=== PATIENT | female | born 1970 | race Asian ===

== ENCOUNTER 2019-01-23 05:32 | Emergency (ER) | payer OTHER ==
[2019-01-23 06:53] VITALS: TEMP 97.9; BMI 29.2
--- NOTE | 2019-01-23 07:13 | PDOC ---
History of Present Illness - General Chief Complaint: Pain Stated Complaint: ABD PAIN Time Seen by Provider: 01/23/19 07:13 - History of Present Illness Initial Comments: 01/23/19 07:13 48 yo female with PMH HTN (not taking home med Norvasc 5 mg) presents with 20 days of heavy vaginal bleeding. She states that initially this bleeding was associated with some lower abdominal pain however the pain resolved after one day. Since then her only symptom had been the heavy vaginal bleeding. She endorses using >10 pads on any given day and the bleeding consists of what she describes as large clots. She states that the lower abdominal pain returned overnight which she describes as significant and radiates to her back b/l. She endorses some nausea which she attributes to the pain but denies any vomiting, constipation, diarrhea, or urinary symptoms. She does endorse becoming lightheaded during the encounter upon sitting up quickly. She denies having any symptoms like this previously and states that she has an appointment with a Manager Package next sunday however with the pain she was unable to wait until her appointment and felt the need to come in today for evaluation. Past History - Past Medical History Allergies/Adverse Reactions: Allergies Allergy/AdvReac Type Severity Reaction Status Date / Time No Known Allergies Allergy Verified 01/23/19 06:53 Home Medications: Ambulatory Orders Amlodipine Besylate [Norvasc -] 5 mg PO DAILY 01/23/19 COPD: No - Suicide/Smoking/Psychosocial Hx Smoking Status: No Smoking History: Never smoked Have you smoked in the past 12 months: No Number of Cigarettes Smoked Daily: 0 Information on smoking cessation initiated: No Hx Alcohol Use: No Drug/Substance Use Hx: No Review of Systems - Review of Systems Able to Perform ROS?: Yes Constitutional: No: Chills, Fever HEENTM: No: Blurred Vision Respiratory: No: Cough, Shortness of Breath Cardiac (ROS): No: Chest Pain, Edema ABD/GI: Yes: Nausea. No: Abdominal Distended, Blood Streaked Bowels, Constipated, Diarrhea, Rectal Bleeding, Vomiting : Yes: Pain, Other (vaginal bleeding). No: Burning, Dysuria, Discharge Musculoskeletal: Yes: Back Pain Integumentary: No: Bruising *Physical Exam - Vital Signs Last Vital Signs Temp Pulse Resp BP Pulse Ox 97.9 F 62 15 111/63 100 01/23/19 05:45 01/23/19 05:45 01/23/19 05:45 01/23/19 05:45 01/23/19 05:45 - Physical Exam Comments: 01/23/19 07:14 GEN: A&O, in no acute distress HEENT: moist mucus membranes NECK: supple, no lymphadenopathy HEART: RRR, no murmurs noted LUNGS: CTA b/l ABDOMEN: Soft, tender in the suprapubic region, no masses felt EXTREMITIES: no peripheral edema or calf tenderness Moderate Sedation - Procedure Monitoring Vital Signs: Procedure Monitoring Vital Signs Temperature 97.9 F 01/23/19 05:45 Pulse Rate 62 01/23/19 05:45 Respiratory Rate 15 01/23/19 05:45 Blood Pressure 111/63 01/23/19 05:45 O2 Sat by Pulse Oximetry (%) 100 01/23/19 05:45 ED Treatment Course - LABORATORY CBC & Chemistry Diagram: 01/23/19 07:30 01/23/19 07:30 Medical Decision Making - Medical Decision Making 01/23/19 07:28 48 yo female presents with 20 days heavy vaginal bleeding with clots and 1 day suprapubic abdominal pain. Becomes lightheaded upon sitting up quickly during encounter CBC, CMP, Coags, Type and Screen, Serum , UA/culture, Transvaginal US 1L fluid bolus for clinical orthostasis and IV Tylenol for pain 01/23/19 09:09 CMP returned, very mild elevation in LFTs, no RUQ/epigastric pain or tenderness. Glucose noted 176, pt should follow up with primary care for further management of what would likely be new diabetes diagnosis as pt not currently on steroids or any medications that would increase random glucose level. UA noted with 3+ blood, cell count pending, no UTI noted CBC, Coags pending Transvaginal US pending 01/23/19 10:28 H/H stable, Coags wnl Transvaginal US with irregular endometrium 8mm, enlarged uterus, fluid likely bood and clot located in the uterus. Pt feels stable to go home and move forward with her appointment on Sunday with Gynecology. *DC/Admit/Observation/Transfer Diagnosis at time of Disposition: Vaginal bleeding - Discharge Dispostion Disposition: HOME Condition at time of disposition: Stable Decision to Admit order: No - Referrals Referrals: Michelle Guadalupe MD [Primary Care Provider] - Clarke Smith MD [Staff Physician] - - Patient Instructions Printed Discharge Instructions: DI for Vaginal Bleeding Additional Instructions: You were seen in the emergency department for continued vaginal bleeding and abdominal pain. Your labs were normal, and an Ultrasound did not reveal any immediately concerning findings. You were given a copy of your ultrasound report which revealed a slightly irregular endometrium and an enlarged uterus. It is important that you follow up with your scheduled Gynecology appointment. You can call and see if there are any cancellations or if they can fit you in earlier. Your pain was relieved with tylenol, you can continue to take tylenol at home as directed on the packaging. If you have severe bleeding, severe pain which cannot be controlled at home, or any loss of consciousness or any other concerning symptoms, you should be evaluated by your doctor or return to the emergency department. - Post Discharge Activity
--- NOTE | 2019-01-23 07:30 | PDOC ---
Attending Attestation - Resident Resident Name: Shahriar Alston - ED Attending Attestation I have performed the following: I have examined & evaluated the patient, The case was reviewed & discussed with the resident, I agree w/resident's findings & plan, Exceptions are as noted - HPI HPI: 01/23/19 07:51 Ms Lia Bhatia is a 48 yo F who presents to the ER with a complaint of abdominal pain and vaginal bleeding pt reports that her symptoms began approximately 3 weeks ago. When pain began, she noted lower abdominal pain. She thought her symptoms were related to the beginning of Menopause. He pain resolved and she notes heavy bleeding, saturating grater than 10 pads per day and clots. She has an appointment with Dr Terry next week but came in to the ER today because her lower abdominal pain returned overnight which she describes as severe, rated 8/10, located through out the lower abdomen and radiating to her back. She denies orthostasis but endorses lightheadedness while in the ER when she sat up. No h/o bleeding disorders No h/o fibroids No h/o cysts - Physicial Exam PE: 01/23/19 07:56 On examination: GENERAL: The patient is in no acute distress. ENT: Ears normal, nares patent, oropharynx clear without exudates. Moist mucous membranes. NECK: Normal range of motion, supple, no nuchal rigidity LUNGS: Breath sounds equal, clear to auscultation bilaterally. No wheezes, and no crackles. HEART:Regular rate and rhythm, normal S1 and S2 without murmur, rub or gallop. ABDOMEN: Soft, lower abdominal tenderness EXTREMITIES: Normal range of motion NEUROLOGICAL: Cranial nerves II through XII grossly intact. Normal speech. No focal neurological deficits. SKIN: Warm, Dry, normal turgor, no rashes or lesions noted. - Medical Decision Making 01/23/19 08:28 48 yo F with dysmenorrhea and persistent heavy vaginal bleeding DD: unlikely threatened ab, degenerating fibroid, will do: Labs TV US Pain meds 01/23/19 08:37 Laboratory Tests 01/23/19 07:30 Sodium 136 Potassium 4.1 Chloride 104 Carbon Dioxide 26 BUN 8 Creatinine 0.7 Random Glucose 176 H Laboratory Tests 01/23/19 07:30 Hgb 9.6 L Hct 28.2 L No prior hemoglobins for comparison 01/24/19 07:45 Transvaginal US with irregular endometrium 8mm, enlarged uterus, fluid likely bood and clot located in the uterus. Will plan to discharge to home Follow up as planned with ob next week Return precautions given clinical impression: dysfunctional uterine bleeding, initial presentation
[2019-01-23] MEDS ORDERED: SODIUM CHLORIDE 1,000 ML IV STA (07:31)
[2019-01-23] MEDS ORDERED: ACETAMINOPHEN 1000 MG/100 ML VIAL (NON FORMULARY) IVPB ONE (07:48)
[2019-01-23] MEDS ORDERED: ACETAMINOPHEN INJECTION 100 ML IVPB ONE (07:53)
[2019-01-23 08:26] VITALS: BP 145/102; PULSE 67
[2019-01-23 08:30] LABS: ALBUMIN 3.5 g/dl (3.4-5.0); ALK PHOS 63 U/L (45-117); ANION GAP 6 MMOL/L (8-16); BILIRUBIN,TOTAL 0.8 mg/dL (0.2-1); BLOOD UREA NITROGEN 8 mg/dL (7-18); CALCIUM 8.4 mg/dL (8.5-10.1); CHLORIDE 104 mmol/L (98-107); CO2 26 mmol/L (21-32); CREATININE 0.7 mg/dL (0.55-1.3); GLUCOSE,RANDOM 176 mg/dL (74-106); POTASSIUM 4.1 mmol/L (3.5-5.1); SGOT/AST 44 U/L (15-37); SGPT/ALT 91 U/L (13-61); SODIUM 136 mmol/L (136-145); TOT PROT 6.6 g/dl (6.4-8.2)
[2019-01-23 08:40] LABS: URINE APPEARANCE CLEAR; URINE BILIRUBIN NEGATIVE (<2.0 mg/dL); URINE COLOR LTYELLOW; URINE GLUCOSE (UA) 1+ (NEGATIVE); URINE KETONE NEGATIVE (NEGATIVE); URINE LEUK ESTERASE NEGATIVE (NEGATIVE); URINE NITRITE NEGATIVE (NEGATIVE); URINE PROTEIN NEGATIVE (NEGATIVE); URINE UROBILINOGEN NEGATIVE mg/dL (0.2-1.0)
[2019-01-23 08:57] LABS: BASO % 0.7 % (0-2.0); EOS % 0.8 % (0-4.5); HEMATOCRIT 28.2 % (32.4-45.2); HEMOGLOBIN 9.6 GM/dL (10.7-15.3); LYMPH % 12.6 % (8-40); MCH 29.6 pg (25.7-33.7); MCHC 34.1 g/dl (32.0-36.0); MEAN CELL VOLUME 86.7 fl (80-96); MEAN PLT VOLUME 9.1 fl (7.5-11.1); MONO % 5.5 % (3.8-10.2); NEUT % 80.4 % (42.8-82.8); PLATELET COUNT 295 K/MM3 (134-434); RBC 3.25 M/mm3 (3.60-5.2); RDW 13.5 % (11.6-15.6); WHITE BLOOD COUNT 7.3 K/mm3 (4.0-10.0)
[2019-01-23 09:19] LABS: INR 0.99 (0.83-1.09); PROTHROMBIN TIME (PATIENT) 11.7 SEC (9.7-13.0)
[2019-01-23 09:41] LABS: EPI CELLS FEW /HPF (FEW); URINE BACTERIA RARE /hpf (NONE SEEN)
== END 2019-01-23 10:59 | disposition home or self-care (01) ==
LOC: JER 05:32
PROC: 3E0337Z Introduction of Electrolytic and Water Balance Substance into Peripheral Vein, Percutaneous Approach (ICD-10-PCS; principal; 2019-01-23)
PROC: 3E033NZ Introduction of Analgesics, Hypnotics, Sedatives into Peripheral Vein, Percutaneous Approach (ICD-10-PCS; 2019-01-23)
DX: N93.8 Other specified abnormal uterine and vaginal bleeding (principal); I10 Essential (primary) hypertension
CPT/HCPCS: 36415; 76830-TC; 80053; 81003; 81015; 82550; 84703; 85025; 85610; 87086; 99282-25; J0131; J7030

== ENCOUNTER 2019-02-17 12:59 | Emergency (ER) | payer OTHER ==
--- NOTE | 2019-02-17 13:10 | PDOC ---
Rapid Medical Evaluation Time Seen by Provider: 02/17/19 13:08 Medical Evaluation: Allergies Allergy/AdvReac Type Severity Reaction Status Date / Time No Known Allergies Allergy Verified 01/23/19 06:53 02/17/19 13:08 I have performed a brief in-person evaluation of this patient The patient present with a chief complaint of: dizziness. Patient reports vaginal bleeding x 50 days Seen by aquatic biologist has scheduled ultrasound tomorrow. States passing clots and has 4-5 soaked pads per day Pertinent physical exam findings: NAD even and unlabored breathing pale mucus membranes I have ordered the following: labs The patient will proceed to the ED for further evaluation.
[2019-02-17] MEDS ORDERED: SODIUM CHLORIDE 0.9% 500 ML INFUS.BAG IV ONE (13:11)
[2019-02-17 13:12] VITALS: TEMP 98.4; BMI 26.3
--- NOTE | 2019-02-17 16:52 | PDOC ---
History of Present Illness - General Chief Complaint: Vaginal Bleeding Stated Complaint: VAGINAL BLEEDING/ DIZZYNESS Time Seen by Provider: 02/17/19 13:08 History Source: Patient Exam Limitations: No Limitations - History of Present Illness Travel History: No Initial Comments: 02/17/19 16:46 48-year-old female with no medical history except for presents to ED with complaints of generalized weakness continual vaginal bleeding now with passage of clots the size of "walnuts" patient has no urinary complaints bowel complaints, fever, or abdominal pain. Patient states started taking iron with no improvement. Patient states saw Dr. Terry approximately one week after being seen here in the ER on 01/23 and has an appointment again tomorrow including an ultrasound but states due to increased dizziness decided come to the ER today. Timing/Duration: reports: getting worse Quality: reports: mild Abdominal Pain Onset Location: reports: suprapubic Pain Radiation: reports: no radiation Aggravating Factors: improves with: None Alleviating Factors: improves with: None Past History - Travel Traveled outside of the country in the last 30 days: No Close contact w/someone who was outside of country & ill: No - Past Medical History Allergies/Adverse Reactions: Allergies Allergy/AdvReac Type Severity Reaction Status Date / Time No Known Allergies Allergy Verified 01/23/19 06:53 Home Medications: Ambulatory Orders Amlodipine Besylate [Norvasc -] 5 mg PO DAILY 01/23/19 COPD: No - Suicide/Smoking/Psychosocial Hx Smoking Status: No Smoking History: Never smoked Have you smoked in the past 12 months: No Number of Cigarettes Smoked Daily: 0 Hx Alcohol Use: No Drug/Substance Use Hx: No Patient Lives Alone: No Lives with/in: spouse/SO Review of Systems - Review of Systems Able to Perform ROS?: Yes Constitutional: Yes: Weakness HEENTM: No: Symptoms Reported Respiratory: No: Symptoms reported Cardiac (ROS): Yes: Lightheadedness ABD/GI: No: Symptoms Reported : Yes: Discharge (vaginal bleeding) Musculoskeletal: No: Symptoms Reported Integumentary: No: Symptoms Reported Neurological: Yes: Weakness, Dizziness Hematologic/Lymphatic: Yes: Other *Physical Exam - Vital Signs Last Vital Signs Temp Pulse Resp BP Pulse Ox 98.4 F 103 H 20 164/107 H 98 02/17/19 13:08 02/17/19 13:08 02/17/19 13:08 02/17/19 13:08 02/17/19 13:08 - Physical Exam General Appearance: Yes: Nourished, Appropriately Dressed. No: Apparent Distress HEENT: negative: Pale Conjunctivae Neck: positive: Supple Respiratory/Chest: positive: Lungs Clear, Normal Breath Sounds. negative: Respiratory Distress, Accessory Muscle Use Cardiovascular: positive: Regular Rhythm, Tachycardia. negative: Murmur Female Pelvic Exam: positive: vaginal bleeding (bright red) Gastrointestinal/Abdominal: positive: Soft. negative: Tenderness Integumentary: positive: Normal Color, Warm, Moist Neurologic: positive: Motor Strength 5/5 (ambulatory) ED Treatment Course - LABORATORY CBC & Chemistry Diagram: 02/17/19 16:45 02/17/19 16:45 Medical Decision Making - Medical Decision Making 02/17/19 16:03 Chief complaint: Vaginal bleeding for approximately 50 days accompanied with dizziness worsening in severity over the past few days. Patient pending ultrasound by REGISTERED HEALTH NURSE Dr. Murillo. Exam. Patient with no abdominal distention slightly tachycardic at 103. Patient of bright red blood noted on sanitary napkin. Plan: Labs, type and screen, urine and ultrasound. Patient also ordered for IV fluids. 02/17/19 18:14 Laboratory Tests 02/17/19 02/17/19 16:45 16:45 WBC 7.8 RBC 3.44 L Hgb 9.0 L Hct 27.8 L RDW 17.1 H Sodium 138 Potassium 3.7 Chloride 104 Carbon Dioxide 25 Anion Gap 8 BUN 6 L Creatinine 0.8 Creat Clearance w eGFR 77.22 Random Glucose 158 H Calcium 8.7 Total Bilirubin 1.2 H AST 28 ALT 49 Alkaline Phosphatase 81 Total Protein 7.7 Albumin 4.1 02/17/19 18:25 The uterus is normal in size measuring 8.5 x 5.9 x 4.9. No uterine masses are seen. At that thickening endometrial 1.4 cm identified. Fluid and solid material that has been identified within the canal on prior study noted 2018 is no longer present. The right ovary is normal size normal arterial and venous flow. 2 small cyst present within measuring 1.4 x 1.2 x 0.9 cm. There is no evidence of adnexal masses or free fluid collections. Patient will follow-up with her SEARCH AND RESCUE OFFICER and will be given copy of her lab work along with ultrasound findings. 02/18/19 14:16 Laboratory Tests 02/17/19 17:30 Urine Blood 3+ H Urine Nitrite Positive H Urine Bilirubin 1+ H Ur Leukocyte Esterase 1+ H Urine WBC (Auto) 40 Pt will be ordered for Macrobid. Left message for pt to callback *DC/Admit/Observation/Transfer Diagnosis at time of Disposition: Vaginal bleeding, Thickened endometrium - Discharge Dispostion Disposition: HOME Condition at time of disposition: Good - Referrals Referrals: Michelle Guadalupe MD [Primary Care Provider] - Clarke Smith MD [Staff Physician] - - Patient Instructions Printed Discharge Instructions: DI for Endometriosis, DI for Vaginal Bleeding Additional Instructions: Please follow-up with your GYNand bring copy if your lab work along with ultrasound findings. May take Tylenol only for discomfort since Motrin may cause thinning of the blood increased bleeding. If you develop worsening dizziness, weakness or heavy vaginal bleeding worsen from presentation today, please return to the ED. Otherwise again follow-up with your REGISTERED HEALTH NURSE. - Post Discharge Activity
[2019-02-17 17:08] LABS: BASO % 0.7 % (0-2.0); EOS % 1.3 % (0-4.5); HEMATOCRIT 27.8 % (32.4-45.2); LYMPH % 18.3 % (8-40); MCH 26.1 pg (25.7-33.7); MCHC 32.2 g/dl (32.0-36.0); MEAN CELL VOLUME 80.9 fl (80-96); MEAN PLT VOLUME 8.6 fl (7.5-11.1); MONO % 3.9 % (3.8-10.2); NEUT % 75.8 % (42.8-82.8); PLATELET COUNT 356 K/MM3 (134-434); RBC 3.44 M/mm3 (3.60-5.2); RDW 17.1 % (11.6-15.6); WHITE BLOOD COUNT 7.8 K/mm3 (4.0-10.0)
[2019-02-17 17:25] LABS: ALBUMIN 4.1 g/dl (3.4-5.0); ALK PHOS 81 U/L (45-117); ANION GAP 8 MMOL/L (8-16); BILIRUBIN,TOTAL 1.2 mg/dL (0.2-1); BLOOD UREA NITROGEN 6 mg/dL (7-18); CALCIUM 8.7 mg/dL (8.5-10.1); CHLORIDE 104 mmol/L (98-107); CO2 25 mmol/L (21-32); CREATININE 0.8 mg/dL (0.55-1.3); GLUCOSE,RANDOM 158 mg/dL (74-106); POTASSIUM 3.7 mmol/L (3.5-5.1); SGOT/AST 28 U/L (15-37); SGPT/ALT 49 U/L (13-61); SODIUM 138 mmol/L (136-145); TOT PROT 7.7 g/dl (6.4-8.2)
[2019-02-17 18:29] LABS: HCG,QUALITATIVE URINE Negative
[2019-02-17 18:44] LABS: EPI CELLS 8.8 /HPF (0-5); PH,URINE 5.5 (5.0-8.0); URINE APPEARANCE CLEAR; URINE BACTERIA 24.6 /hpf (NEGATIVE); URINE BILIRUBIN 1+ (NEGATIVE); URINE CASTS 38 /hpf (0-8); URINE COLOR RED; URINE GLUCOSE (UA) NEGATIVE (NEGATIVE); URINE KETONE NEGATIVE (NEGATIVE); URINE LEUK ESTERASE 1+ (NEGATIVE); URINE NITRITE POSITIVE (NEGATIVE); URINE PROTEIN 3+ (NEGATIVE); URINE RBC 401 /hpf (0-4); URINE UROBILINOGEN 0.2 mg/dL (0.2-1.0); URINE WBC 40 /hpf (0-5)
[2019-02-17 18:56] VITALS: BP 149/94; PULSE 106
== END 2019-02-17 18:56 | disposition home or self-care (01) ==
LOC: JER 12:59
DX: N93.8 Other specified abnormal uterine and vaginal bleeding (principal); R93.89 Abnormal findings on diagnostic imaging of other specified body structures
CPT/HCPCS: 36415; 76830-TC; 76856-TC; 80053; 81003; 84703; 85025; 86850; 86900; 86901; 99281-25

== ENCOUNTER 2019-02-20 12:35 | Day surgery (SDC) | payer OTHER ==
[2019-02-19 17:44] VITALS: BMI 26.3
[2019-02-20] MEDS ORDERED: PROPOFOL 20 ML ONE (13:27)
[2019-02-20] MEDS ORDERED: MIDAZOLAM HCL 2 MG/2 ML SINGLE DOSE VIAL ONE (13:27)
--- NOTE | 2019-02-20 13:28 | HP ---
History & Physical Update - History History: No Change - Physical Physical: No Change - Assessment Assessment: No Change - Plan Plan: No Change (H&P reviwed , no cahnges for hysteroscopy D&C , polypectomy)
[2019-02-20] MEDS ORDERED: ONDANSETRON 4 MG/2 ML VIAL IVPUSH PRN ×2 (13:35→15:55)
[2019-02-20] MEDS ORDERED: oxyCODONE HCL 5 MG TABLET PO PRN ×2 (13:35→15:55)
[2019-02-20] MEDS ORDERED: LACTATED RINGERS SOLUTION 1,000 ML IV SCH (13:45)
[2019-02-20] MEDS ORDERED: KETOROLAC TROMETHAMINE 30 MG/1 ML VIAL ONE (13:56)
[2019-02-20] MEDS ORDERED: GLYCOPYRROLATE 0.2 MG/1 ML VIAL ONE (13:58)
[2019-02-20 15:41] VITALS: TEMP 97.4
[2019-02-20] MEDS ORDERED: IBUPROFEN 600 MG TABLET (FP) PO PRN (15:55)
[2019-02-20] MEDS ORDERED: IBUPROFEN 800 MG/8 ML IJ IVPB PRN (15:55)
[2019-02-20] MEDS ORDERED: ELECTROLYTE-148 SOLN 1,000 ML IV SCH (16:00)
[2019-02-20 17:04] VITALS: BP 136/79; PULSE 78
--- NOTE | 2019-02-24 15:10 | PATH ---
Surgical Pathology Report Patient Name: MAY WEAVER [facility]. Rec. #: [id number] /Age/Gender: 1970 (Age: 48) / F Account: [id number] Location: [facility] SURGICAL Taken: 02/20/2019 Received: 02/21/2019 Reported: 02/24/2019 Physicians: Clarke Smith M.D. Specimen(s) Received ENDOMETRIAL CURETTINGS Clinical History Menorrhagia Final Diagnosis ENDOMETRIAL CURETTINGS, POLYP, DILATION AND CURETTAGE: FRAGMENTS OF ENDOMETRIAL POLYP, PROLIFERATIVE ENDOMETRIUM, ENDOCERVIX WITH SQUAMOUS METAPLASIA, AND BENIGN CERVICAL SQUAMOUS MUCOSA. Electronically Signed Mehreen Ricks M.D. Gross Description Received in formalin labeled "endometrial curettings," is a 3.5 x 3.0 x 0.4 cm aggregate of ruiz-brown soft tissue fragments. The formalin is filtered and the specimen is entirely submitted in 2 cassettes. /02/21/2019 saudi02/21/2019
--- NOTE | 2019-02-25 13:24 | OP ---
DATE OF OPERATION: 02/20/2019 PREOPERATIVE DIAGNOSES: Menometrorrhagia, anemia, endometrial polyp. POSTOPERATIVE DIAGNOSES: Menometrorrhagia, anemia, endometrial polyp. PROCEDURE: Hysteroscopy, dilatation and curettage, polypectomy. SURGEON: Clarke Smith MD ANESTHESIA: General. ESTIMATED BLOOD LOSS: 25 mL. OPERATION: Patient was taken to the operating room. Under adequate general anesthesia in dorsal lithotomy position examination under anesthesia revealed the external genitalia to be normal. Vagina was normal. Cervix was clean. No gross lesion. A small amount of bleeding from the os. Uterus was prominent and consistent with adenomyosis. Adnexa: No masses were palpable. Then with a weighted speculum in the vagina anterior lip of the cervix was grasped with a single-tooth tenaculum. Cervix was slightly dilated with Hegar dilators and then hysteroscope was introduced. Visualization of the endocervical canal appeared to be normal. Endometrium was irregular with 2 polyps seen at the fundal and mid body of the uterus. Both tubal ostia were visualized. Also the endometrium was pushed into the cavity from the intramural fibroid. No other abnormality was found. Polyp was removed and endometrium was curetted. Patient tolerated procedure well, left the OR in good condition. CLARKE SMITH M.D. [id number]
== END 2019-02-20 17:11 | disposition home or self-care (01) ==
LOC: JASU-SURG 12:35
PROVIDERS: ATTEND Obstetrics & Gynecology
PROC: 0UJD8ZZ Inspection of Uterus and Cervix, Via Natural or Artificial Opening Endoscopic (ICD-10-PCS; 2019-02-20)
PROC: 0UB97ZX Excision of Uterus, Via Natural or Artificial Opening, Diagnostic (ICD-10-PCS; principal; 2019-02-20 14:30)
PROC: 0UDB7ZX Extraction of Endometrium, Via Natural or Artificial Opening, Diagnostic (ICD-10-PCS; 2019-02-20 14:30)
DX: N92.1 Excessive and frequent menstruation with irregular cycle (principal); N84.0 Polyp of corpus uteri; D64.9 Anemia, unspecified
CPT/HCPCS: 36415; 84703; 86850; 86900; 86901; 88305-TC; 94760

== ENCOUNTER 2020-06-04 11:22 | Day surgery (SDC) | payer OTHER ==
[2020-06-03 15:00] VITALS: BMI 26.2
--- NOTE | 2020-06-04 07:36 | HP ---
History & Physical Update - Physical Physical: No Change - Assessment Assessment: No Change - Plan Plan: No Change (H&P reviwed, no changes , for hysteroscopic EM hydroablation, D&C)
[~2020-06-04 11:22] MED LIST: ACETAMINOPHEN 325 MG TABLET (FP) PO PRN; LACTATED RINGERS SOLUTION 1,000 ML IV SCH; ONDANSETRON 4 MG/2 ML VIAL IVPUSH PRN; PROMETHAZINE HCL 25 MG/1 ML VIAL IVPUSH PRN; oxyCODONE HCL 5 MG TABLET PO PRN
[2020-06-04] MEDS ORDERED: MIDAZOLAM HCL 2 MG/2 ML SINGLE DOSE VIAL ONE (12:56)
[2020-06-04] MEDS ORDERED: PROPOFOL 20 ML ONE (12:56)
[2020-06-04 12:57] LABS: EOS % 3.4 % (0-4.5); HEMATOCRIT 30.3 % (32.4-45.2); LYMPH % 27.8 % (8-40); MCH 27.8 pg (25.7-33.7); MCHC 33.1 g/dl (32.0-36.0); MEAN CELL VOLUME 83.9 fl (80-96); MEAN PLT VOLUME 8.8 fl (7.5-11.1); MONO % 6.1 % (3.8-10.2); NEUT % 61.7 % (42.8-82.8); PLATELET COUNT 256 K/MM3 (134-434); RBC 3.61 M/mm3 (3.60-5.2); RDW 15.6 % (11.6-15.6); WHITE BLOOD COUNT 4.9 K/mm3 (4.0-10.0)
[2020-06-04] MEDS ORDERED: DEXAMETHASONE SOD PHOSPHATE 4 MG/1 ML VIAL ONE (12:57)
[2020-06-04] MEDS ORDERED: KETOROLAC TROMETHAMINE 30 MG/1 ML VIAL ONE (12:57)
[2020-06-04] MEDS ORDERED: LIDOCAINE HCL/PF 2% SDV 5ML VIAL ONE (12:57)
[2020-06-04] MEDS ORDERED: SODIUM CHLORIDE 0.9% P/F 10 ML VIAL IJ ONE (12:59)
[2020-06-04 13:11] LABS: INR 0.97 (0.83-1.09); PROTHROMBIN TIME (PATIENT) 11.5 SEC (9.7-13.0)
[2020-06-04 13:14] LABS: ACTIVATED PTT 29.8 SECONDS (25.2-36.5)
[2020-06-04 13:29] LABS: ANION GAP 5 MMOL/L (8-16); BLOOD UREA NITROGEN 9.2 mg/dL (7-18); CALCIUM 9.1 mg/dL (8.5-10.1); CHLORIDE 106 mmol/L (98-107); CO2 27 mmol/L (21-32); CREATININE 0.8 mg/dL (0.55-1.3); GLUCOSE,RANDOM 130 mg/dL (74-106); POTASSIUM 4.2 mmol/L (3.5-5.1); SODIUM 139 mmol/L (136-145)
[2020-06-04] MEDS ORDERED: ceFAZolin SODIUM 1 GM VIAL ONE (13:38)
[2020-06-04] MEDS ORDERED: ceFAZolin SODIUM 1 GM VIAL IVPB ONE (13:39)
--- NOTE | 2020-06-04 14:25 | OP ---
Operative Note - Note: Operative Date: 06/04/20 Pre-Operative Diagnosis: menometrorrhagia, anemia Operation: hysteroscopy , D&C, EM hydroablation Findings: enlarged uterus , possible adenomyosis, irregular thick EM Surgeon: Clarke Smith Anesthesia: General Specimens Removed: EMC Estimated Blood Loss (mls): 25 Drains & Tubes with Location: none Blood Volume Replaced (mls): 0 Operative Report Dictated: Yes
[2020-06-04] MEDS ORDERED: oxyCODONE HCL 5 MG TABLET ONE (16:25)
[2020-06-04 17:24] VITALS: BP 145/50; PULSE 82; TEMP 97.2
--- NOTE | 2020-06-09 14:38 | OP ---
DATE OF OPERATION: 06/04/2020 PREOPERATIVE DIAGNOSIS: Menometrorrhagia, anemia. POSTOPERATIVE DIAGNOSIS: Menometrorrhagia, anemia. PROCEDURE: Hysteroscopy, dilation and curettage and endometrial hydro-ablation. SURGEON: Clarke Smith MD ANESTHESIA: General. ESTIMATED BLOOD LOSS: 25 mL. OPERATIVE REPORT: Patient was taken to the operating room. Under adequate general anesthesia in the dorsal lithotomy position examination under anesthesia revealed external genitalia to be normal. Vagina was normal. Cervix was clean. No gross lesion. Uterus was prominent, anteverted. No masses were palpable. Adnexa: No masses were palpable. Then with a weighted speculum in the vagina, anterior lip of the cervix was grasped with single-tooth tenaculum. Uterine cavity was sounded to 9 cm. Cervix was slightly dilated with Hegar dilator and then endometrial curetting was done first. Hysteroscope was introduced. Visualization of the endocervical canal appeared to be normal. Endometrium was irregular and patchy. Both cornual regions were identified. Then, endometrial hydro-ablation done according to the company's protocol and patient tolerated procedure well, left the OR in good condition. No leak. No complication. CLARKE SMITH M.D. /[id number]
--- NOTE | 2020-06-09 17:56 | PATH ---
Surgical Pathology Report Patient Name: MAY WEAVER [facility]. Rec. #: [id number] /Age/Gender: 1970 (Age: 50) / F Account: [id number] Location: [facility] SURGICAL Taken: 06/04/2020 Received: 06/07/2020 Reported: 06/09/2020 Physicians: Clarke Smith M.D. Specimen(s) Received ENDOMETRIAL CURETTINGS Clinical History Menometrorrhagia Final Diagnosis ENDOMETRIAL CURETTINGS, DILATION AND CURETTAGE: FRAGMENTS OF SECRETORY ENDOMETRIUM WITH GLANDULAR AND STROMAL BREAKDOWN ADMIXED WITH BLOOD. FRAGMENTS OF BENIGN CERVICAL TISSUE. Electronically Signed Mehreen Ricks M.D. Gross Description Received in formalin labeled "endometrial curettings," is a 3.3 x 2.3 x 0.3 cm aggregate of ruiz-brown soft tissue fragments admixed with blood clot. The formalin is filtered and the specimen is entirely submitted in 2 cassettes. /06/07/2020 saudi/06/07/2020
== END 2020-06-04 17:30 | disposition home or self-care (01) ==
LOC: JASU-SURG 11:22
PROVIDERS: ATTEND Obstetrics & Gynecology
PROC: 0U5B8ZZ Destruction of Endometrium, Via Natural or Artificial Opening Endoscopic (ICD-10-PCS; principal; 2020-06-04 14:30)
PROC: 0UDB7ZX Extraction of Endometrium, Via Natural or Artificial Opening, Diagnostic (ICD-10-PCS; 2020-06-04 14:30)
DX: N92.1 Excessive and frequent menstruation with irregular cycle (principal); D64.9 Anemia, unspecified
CPT/HCPCS: 36415; 80048; 81025; 84702; 85025; 85610; 85730; 86850; 86900; 86901; 88305-TC; 94760